=== PATIENT | female | born 1995 | race Caucasian/White ===

== ENCOUNTER → 2019-09-12 09:06 | Outpatient (CLI) | payer OTHER, SELFPAY ==
--- NOTE | 2019-09-12 09:12 | DI.US.S_ITS ---
LIMITED ULTRASOUND OF LEFT BREAST: 09/12/2019 CLINICAL: Palpable left breast lump. No prior exams were available for comparison. Real-time ultrasound of the left breast 1-6 o'clock region was performed. Bo scale images of the real-time examination were reviewed. No significant abnormalities were seen sonographically in the left breast. Specifically, no finding to correspond to the patient's palpable abnormality in the 2:00 area or lower outer quadrant. IMPRESSION: NEGATIVE There is no sonographic evidence of malignancy or explaination for palpable abnormalties. Clinical follow up is recommended if any abnormality persists or grows. Findings and recommendations were conveyed to the patient at time of exam. This exam was interpreted at Station ID: [id number]. Electronically Signed By: Emani cash/:09/12/2019 10:15:55 letter sent: Normal Exam Ultrasound BI-RADS: 1 Negative
== END ==
PROVIDERS: PCP Nurse Practitioner Family; Referring Provider Nurse Practitioner Family; Visit Provider Nurse Practitioner Family
DX: N63.20 Unspecified lump in the left breast, unspecified quadrant (principal)
CPT/HCPCS: 76642

== ENCOUNTER → 2022-08-08 09:00 | Outpatient (CLI) | payer OTHER, SELFPAY ==
--- NOTE | 2022-08-08 09:02 | DI.MG.S_ITS ---
BILATERAL DIGITAL DIAGNOSTIC MAMMOGRAM 3D/2D: 08/08/2022 CLINICAL: Baseline. Bilateral pain and lumps. Comparison is made to exams dated: 08/08/2022 ultrasound, 08/08/2022 ultrasound, and 09/12/2019 [facility]. Both breasts are heterogeneously dense, which may obscure small masses (category c / 51-75% glandular tissue). There is a possible irregular high density asymmetry in the right breast at 8 o'clock anterior depth. This possibly correlates with ultrasound findings, but does not correlate with palpable abnormality. It is not confirmed as a discrete structure in additional views. No other significant masses, calcifications, or other findings are seen in either breast. IMPRESSION: PROBABLY BENIGN The possible irregular high density asymmetry in the right breast most likely is fibroglandular tissue and is probably benign. There is no abnormality seen in the right breast to correspond with the palpable abnormality at 8 o'clock. There is no abnormality seen in the right breast to correspond with the ultrasound finding at 8 o'clock. There is no abnormality seen in the left breast to correspond with the pain at 4 o'clock. There is no abnormality seen in the left breast to correspond with the palpable abnormality in the upper outer quadrant. A follow-up right mammogram and an ultrasound in 6 months is recommended to demonstrate stability of dense fibroglandular tissue in the anterior right breast Findings and recommendations were conveyed to the patient at time of exam. . Based on the Tyrer Cuzick model (a risk assessment model) the patient's lifetime risk is 14.5% and her 10 year risk is 0.4%. According to the ACR, ACS, and NCCN guidelines, an annual breast MRI exam along with mammogram is recommended if the patient's lifetime risk is 20% or greater. This exam was interpreted at Station ID: [id number]. NOTE: For mammograms, a report in lay terms will be sent to the patient. Approximately 15% of breast malignancies will not be visualized mammographically. In the management of a palpable breast mass, a negative mammogram must not discourage biopsy of a clinically suspicious lesion. Electronically Signed By: Emani cash/:08/08/2022 13:10:20 letter sent: Followup Recommended ACR BI-RADS Category 3: Probably benign 3343F
--- NOTE | 2022-08-08 09:02 | DI.US.S_ITS ---
LIMITED ULTRASOUND OF LEFT BREAST: 08/08/2022 CLINICAL: Palpable left breast lump and focal pain. Comparison is made to exam dated: 09/12/2019 [facility]. Color flow ultrasound of the left breast 12-4 o'clock region was performed. Bo scale images of the real-time examination were reviewed. No significant abnormalities were seen sonographically in the left breast. Specifically, no finding to correspond to the patient's palpable abnormality and no finding to explain the patient's pain. IMPRESSION: NEGATIVE There are no sonographic abnormalities in the left breast. Findings and recommendations were conveyed to the patient at time of exam. This exam was interpreted at Station ID: [id number]. Electronically Signed By: Emani cash/:08/08/2022 10:20:10 letter sent: Normal Exam Ultrasound BI-RADS: 1 Negative
--- NOTE | 2022-08-08 09:02 | DI.US.S_ITS ---
PROCEDURE: US BREAST RT LIMITED COMPARISON: None. INDICATIONS: breast pain FINDINGS: IMPRESSION: Dictated by: Emani Gomez M.D. on 08/08/2022 at 9:47 Approved by: Emani Gomez M.D. on 08/08/2022 at 9:51
--- NOTE | 2022-08-08 09:17 | DI.US.S_ITS ---
Patient Name: KESHAV CHOE date: 1995 Sex: F Attending Physician: Jeúss Indications: Date: 08/08/2022 13:05 At the request of: OLGA MANLEY Procedure: US breast RT limited LIMITED ULTRASOUND OF RIGHT BREAST: 08/08/2022 CLINICAL: Palpable right breast lump and focal pain. No prior exams were available for comparison. Color flow ultrasound of the right breast 8-12 o'clock region was performed. Bo scale images of the real-time examination were reviewed. There is a possible 1.2 cm x 2.1 cm x 0.9 cm ill defined, irregular area of fibroglandular tissue with an indistinct, angular, and spiculated margin in the right breast at 8 o'clock anterior depth 5 cm from the nipple. This irregular area of fibroglandular tissue displays posterior acoustic shadowing. This correlates as palpated. Trace adjacent vascularity. IMPRESSION: INCOMPLETE: NEEDS ADDITIONAL IMAGING EVALUATION The possible 1.2 cm x 2.1 cm x 0.9 cm irregular area of fibroglandular tissue in the right breast corresponds to the palpable abnormality but remains indeterminate. A diagnostic mammogram is recommended. This was performed immediately following this exam. There is no abnormality seen in the right breast to correspond with the pain in the upper outer quadrant. This exam was interpreted at Station ID: [id number]. Electronically Signed By: Emani cash/:08/08/2022 13:05:58 Continued Report - Page 2 of 2 Patient Name: KESHAV CHOE date: 1995 Sex: F Attending Physician: Jesús Indications: Date: 08/08/2022 13:05 At the request of: OLGA MANLEY Procedure: US breast RT limited Ultrasound BI-RADS: 0 Indeterminate
== END ==
PROVIDERS: PCP Registered Nurse Diabetes Educator; Referring Provider Registered Nurse Diabetes Educator; Visit Provider Registered Nurse Diabetes Educator
DX: R92.2 Inconclusive mammogram (principal); N64.4 Mastodynia
CPT/HCPCS: 76642; 77066; G0279

== ENCOUNTER → 2022-09-13 | Outpatient (CLI) | payer OTHER, SELFPAY ==
--- NOTE | 2022-09-13 | DI.US.S_ITS ---
ULTRASOUND GUIDED BIOPSY RIGHT BREAST WITH POST ULTRASOUND IMAGIN09/13/2022 CLINICAL: Right breast mass. PATIENT CONSENT: Risks (minor bleeding, infection, vasovagal reaction and repeat procedure), benefits and alternatives were explained to the patient and written informed consent was obtained. Correlation is made to exam dated: 08/08/2022 [facility]. An ultrasound guided biopsy using real-time ultrasound was performed for the irregular shaped mass-like area located in the right breast at 8 o'clock. This was described on the previous ultrasound report. The skin was prepped in the usual manner. Local anesthetic was administered to the access site. The abnormality was approached from the caudocranial aspect. An 18 gauge biopsy needle was placed adjacent to the abnormality under ultrasound guidance. Once the needle was documented to be in the correct location, five specimens were obtained using an automated biopsy gun. The specimens were sent to the laboratory for pathological analysis. IMPRESSION: ULTRASOUND GUIDED BIOPSY BENIGN Ultrasound guided biopsy of the mass in the right breast posterior depth was successful. A biopsy clip was not placed because of the patient's age and the patient's preference. Pathology results benign and concordant: benign breast parenchyma and fibroadipose tissue with abundant hyalinized stromal change. 6 month followup mammogram and ultrasound recommended. This exam was interpreted at Station ID: [id number]. Fani cabral/:09/21/2022 13:03:34
--- NOTE | 2022-09-13 | PATH_ITS ---
[facility] Accession Number: [id number] No. of containers..01 Tissue . 01 Material submitted: . breast - RIGHT BREAST MASS 8:00 5CMFN . 01 Diagnosis: Right Breast Mass at 8 o'clock, 5 cm from Nipple, Needle Core Biopsy: Benign breast parenchyma and fibroadipose tissue with abundant hyalinized stromal change. Negative for epithelial atypia or malignancy. Additional levels through the block are non-contributory. MRV 09/18/2022 1645 Local . 01 Electronically signed: . Harriett Hanson MD, Pathologist NPI- [id number] . 01 Gross description: . The specimen is received in formalin labeled with the patient's name, , and Rt. breast Ndl core biopsy, and consists of four yellow needle core biopsies ranging in length from 1.2 to 2.0 cm and averaging 0.1 cm in diameter. The specimen is inked blue and submitted entirely in cassette A1. . The specimen was removed on 09/13/2022 at 1517 hours, time in formalin not provided, cold ischemic time cannot be calculated, total fixation time is approximately 26 hours. ([id number]) /HEATHER 09/14/2022 1007 Local . 01 Pathologist provided ICD-10: Q83.9, R92.8 . 01 CPT . 428625 Specimen Comment: A courtesy copy of this report has been sent to [facility] Pathology Performed at: 01 [facility] [address] [place] [address] [id number] MD Daniel Hart MD Phone: [phone]
== END ==
LOC: US 14:07
PROVIDERS: PCP Registered Nurse Diabetes Educator; Referring Provider Surgery; Visit Provider Surgery
DX: Q83.9 Congenital malformation of breast, unspecified (principal); R92.8 Other abnormal and inconclusive findings on diagnostic imaging of breast; N63.13 Unspecified lump in the right breast, lower outer quadrant
CPT/HCPCS: 19083

== ENCOUNTER → 2023-02-23 10:07 | Outpatient (CLI) | payer OTHER, SELFPAY ==
--- NOTE | 2023-02-23 | DI.MG.S_ITS ---
UNILATERAL RIGHT DIGITAL DIAGNOSTIC MAMMOGRAM 3D/2D WITH TANGENTIAL: 02/23/2023 CLINICAL: Patient returns for a 6 month follow up of the right breast. Post biopsy. Comparison is made to exam dated: 08/08/2022 mammogram - [facility]. The right breast is heterogeneously dense, which may obscure small masses (category c / 51-75% glandular tissue). No significant masses, calcifications, or other findings are seen in the breast. The asymmetry seen on prior mammogram is less prominent. Of note, patient is status post benign and concordant right breast biopsy, however no clip was placed. IMPRESSION: INCOMPLETE: NEEDS ADDITIONAL IMAGING EVALUATION No mammographic evidence of malignancy. Recommend targeted right breast ultrasound, which is scheduled to immediately follow this exam. Recommend routine screening mammogram starting at age 40. Based on the Tyrer Cuzick model (a risk assessment model) the patient's lifetime risk is 14.4% and her 10 year risk is 0.5%. According to the ACR, ACS, and NCCN guidelines, an annual breast MRI exam along with mammogram is recommended if the patient's lifetime risk is 20% or greater. This exam was interpreted at Station ID: [id number]. NOTE: For mammograms, a report in lay terms will be sent to the patient. Approximately 15% of breast malignancies will not be visualized mammographically. In the management of a palpable breast mass, a negative mammogram must not discourage biopsy of a clinically suspicious lesion. Electronically Signed By: Casi Wadsworth M.D., PH.D eb/:02/23/2023 11:06:03 ACR BI-RADS Category 0: Incomplete 3340F
--- NOTE | 2023-02-23 10:08 | DI.US.S_ITS ---
LIMITED ULTRASOUND OF RIGHT BREAST: 02/23/2023 CLINICAL: Patient returns today to evaluate a focal asymmetry in the right breast. Comparison is made to exams dated: 02/23/2023 mammogram, 09/13/2022 ultrasound biopsy, 08/08/2022 mammogram, 08/08/2022 ultrasound, 08/08/2022 ultrasound, and 09/12/2019 ultrasound - [facility]. Color flow and real-time ultrasound of the right breast 8 o'clock region were performed. The patient is status post benign and concordant biopsy of irregular fibroglandular tissue seen in the right breast at 8 o'clock, 5 cm from the nipple that corresponding to area of prior palpable concern. Of note, no biopsy clip was placed at time of biopsy due to patient preference. Compared to prior ultrasound 08/08/2022, the finding is stable. IMPRESSION: BENIGN Status post benign and concordant right breast biopsy (no biopsy clip placed). No mammographic or targeted sonographic evidence of malignancy. Recommend routine screening mammogram starting at age 40. Clinical follow-up is also recommended, and further management of palpable abnormalities or other focal signs or symptoms should be based on the results of clinical evaluation. If palpable abnormality or other concerning symptom persists or progresses, further clinical evaluation should be considered. Findings and recommendations were conveyed to the patient during today's evaluation. This exam was interpreted at Station ID: [id number]. Electronically Signed By: Casi Wadsworth M.D., PH.D eb/:02/23/2023 11:59:02 letter sent: Clinical Evaluation Ultrasound BI-RADS: 2 Benign
== END ==
PROVIDERS: PCP Registered Nurse Diabetes Educator; Referring Provider Registered Nurse Diabetes Educator; Visit Provider Registered Nurse Diabetes Educator
DX: R92.8 Other abnormal and inconclusive findings on diagnostic imaging of breast (principal)
CPT/HCPCS: 76642; 77065; G0279

== ENCOUNTER → 2024-09-22 14:51 | Outpatient (CLI) | payer OTHER, SELFPAY ==
--- NOTE | 2024-09-22 14:53 | DI.US.S_ITS ---
PROCEDURE: US SOFT TISSUE HEAD AND NECK INDICATIONS: eval lump/node right/left cervical TECHNIQUE: Real-time scanning was performed of the neck region of interest, with image documentation. COMPARISON: None. FINDINGS: Small foci of echogenicity are identified at the area palpable concern. They appear to correlate to normal appearing and normal-sized lymph nodes. IMPRESSION: Normal lymph nodes at areas of concern. Dictated by: Dori Ignacio M.D. on 09/22/2024 at 17:45 Approved by: Dori Ignacio M.D. on 09/22/2024 at 17:46
== END ==
PROVIDERS: PCP Registered Nurse Diabetes Educator; Referring Provider Physician Assistant; Visit Provider Physician Assistant
DX: R09.89 Other specified symptoms and signs involving the circulatory and respiratory systems (principal)
CPT/HCPCS: 76536

== ENCOUNTER → 2024-09-29 09:23 | Outpatient (CLI) | payer OTHER, SELFPAY ==
[2024-09-29 10:39] LABS: Add Manual Diff / Slide Review NO; Hematocrit 41.3 % (36-46); Hemoglobin 14.0 g/dL (12.0-16.0); Lymphocytes Absolute Auto 1200 /uL (1100-4500); Mean Corpuscular HGB Conc 33.9 % (30-36); Mean Corpuscular Hemoglobin 31.8 PG (26-34); Mean Corpuscular Volume 93.7 fL (80-100); Platelet Count 327 X10^3/uL (150-400)
[2024-09-29 11:59] LABS: Folate 8.7 ng/mL (2.76-20.0); Vitamin B12 302 pg/mL (239-931)
== END ==
PROVIDERS: PCP Registered Nurse Diabetes Educator; Referring Provider Registered Nurse Diabetes Educator; Visit Provider Registered Nurse Diabetes Educator
DX: D75.89 Other specified diseases of blood and blood-forming organs (principal)
CPT/HCPCS: 36415; 82607; 82746; 85025